=== PATIENT | female | born 1995 | race Caucasian/White ===

== ENCOUNTER 2025-04-22 02:56 | Day surgery (SDC) | payer BC, SELFPAY ==
[2025-04-08 14:25] VITALS: BMI 38.8
--- NOTE | 2025-04-08 14:26 | PC.NURSE ---
[facility] has started construction of its new state of the art ER which will open Spring 2026. With this, we anticipate parking may be a challenge for some our surgical patients and families. Parking spaces are limited but are available for all Surgical, obstetrics, and ER patients sharing this lot. If you arrive and find you are having a hard time finding a parking space, please note that we understand the challenges, please drive around the hospital and park near Hospital Entrance 1. When you enter this entrance, you can ask a volunteer to direct or take you back to the surgical waiting area to check in. We appreciate everyone?s understanding of these expected challenges while we build for your future. Report to the Outpatient Waiting Room, entrance under the green pavilion located off [address], at time _1130_ on date _[id number]_. Planned Procedure Time: _130pm_.? Time changes happen often and if your time is changed the preop area will call you the afternoon before. - You and your visitor will be asked to self-screen and do not enter if you have any COVID symptoms. Please call surgeon if you need to reschedule. - A mask is optional within the hospital at this time. Patients may have clear liquids (water, carbonated beverages, clear teas, apple juice) until 3 hours prior to surgery with a maximum of 20 ounces. - No food from midnight until time of surgery and no smoking, or chewing tobacco (or any form of nicotine). No chewing gum, candy or mints. Take only the following medications with a SIP of water on the morning of surgery: ___Labetolol____ DO NOT STOP ANY OF YOUR OTHER PRESCRIPTION MEDICATIONS PRIOR TO SURGERY EXCEPT THE FOLLOWING Hold all vitamins and supplements for 3 days per anesthesiologist. Medications to discontinue per physician Date to take last dose Please no make-up, nail sami, hairspray, perfume, deodorant, or body powder the day of surgery.? No jewelry (including any body piercings) or valuables the day of surgery, leave them at home.? Please take a shower or bath the night before, or the morning of, surgery with an antibacterial soap.? Wear comfortable, loose fitting clothing.? - Jewelry must be removed prior to entering the operating room.? Rings and piercings that are not removed may be cut off. - The hospital will not accept responsibility for valuables.? - Please leave all valuables, including medications, at home the day of surgery. If you are going home after surgery, a licensed limo driver must drive you home.? - NO public transportation without another adult if you receive anesthesia. - We recommend that an adult stay with you for 24 hours following discharge. - We also recommend that you do not drive, make important decision, drink alcoholic beverages, or take any drugs that were not prescribed by your health care provider for at least 24 hours after your discharge time. Follow any additional instructions given to you from your surgeon. Telephone instructions given to __Fatoumata___and asked if any additional questions and then verbalized understanding. Patient advised to call surgeon office or pre surgery nurse liaison [phone] if any additional questions.
[2025-04-22] VITALS (8 sets, daily range): BP systolic 111–132; BP diastolic 51–79; PULSE 60–73; RESP 12–20; TEMP 36.1–36.4; O2SAT 95–100
--- OUTSIDE RECORDS SUMMARY | 2025-04-22 02:59 | XMS_ITS | Encounter Summary ---
Author Organization [facility] Address [address] [place] [id number] Care Team Providers Care Principal Bioinformatics Specialist Name Role Phone Tray Bright MD Primary Care Provider [phone] Encounter Details Date Type Department Care Team (Late st Contact Info) Description 12/18/2021 [facility] [employer] Message Enc [facility] [address] [place] [address] Jerry Perry MD [address] [place], [place] [id number] Update Social History Tobacco Use Types Packs/Day Years Used Date Smoking Tobacco: Never Smokeless Tobacco: Never Alcohol Use Standard Drinks/Week Comments Yes 1.7 (1 standard drink = 0.6 oz p ure alcohol) AUDIT-C Answer Date Recorded Frequency of Alcohol Consumption 2-4 times a fri02/03/2019 Average Number of Drinks 1 or 2 019 Frequency of Binge Drinking Not on file 01/18 PHQ-2 Answer Date Recorded PHQ-2 Score - If the patient scores above 3, please move on to questions 3-9 0 12/12/2021 Comments No Sex and Gender Information Value Date Recorded Sex Assigned at Not on file Legal Sex Female 7:54 AM CDT Gender Identity Not on file Sexual Orientation Not on file 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 No / Unsure 12/12/2021 1:44 PM CDT documented as of this encounter Progress Notes * Jerry Perry MD - 12/18/2021 11:37 AM CDT Abx likley not appropriate unless has otitis media. Continuing conservative measuers is likely the appropriate route. documented in this encounter Plan of Treatment Not on file documented as of this encounter Visit Diagnoses Not on filedocumented in this encounter Care Teams Principal Bioinformatics Specialist Relationship Specialty Start Date End Date Tray Bright MD [address] [place] [address] [place] [address] PCP - General FAMILY PRACTICE 11/04/18 documented as of this encounter
--- OUTSIDE RECORDS SUMMARY | 2025-04-22 02:59 | XMS_ITS | Encounter Summary ---
Author Organization [facility] Address [address] [place] [address] Care Team Providers Care Crystallography Teacher Name Role Phone Loreto Watters MD Primary Care Provider [phone] Encounter Details Date Type Department Care Team (Late st Contact Info) Description 10/01/2024 Results Follow-Up [facility] OBGYN [address] [facility] [address] [facility] [place] [address] Estela Stafford, GENERATION ENGINEER [address] [facility] [address], [address] [place], [place] [id number] Social History Tobacco Use Types Packs/Day Years Used Date Smoking Tobacco: Never Passive Smoke Exposure: Never Smokeless Tobacco: Never Alcohol Use Standard Drinks/Week Comments Not Currently 0 (1 standard drink = 0.6 oz pur e alcohol) [facility] Utilities Answer Date Recorded In the past 12 months has [employer], [employer], oil, or water [employer] threatened to shut off services in your home? No 09/24/2024 AUDIT-C Answer Date Recorded Q1: How often do you have a drink containing alcohol? Never 09/24/2024 Q2: How many drinks containi ng alcohol do you have on a typical day when you are drinking? Patient does not drink Q3: How often do you have si x or more drinks on one occasion? Never 09/24/2024 Overall Financial Resource Strain (CARDIA) Answe r Date Recorded How hard is it for you to pa y for the very basics like food, housing, medical care, and heating? Not hard at all 09/24/2024 [facility] Occupat ional Health - Occupational Stress Questionnaire Answer Date Recorded Do you feel stress - tense, restless, nervous, or anxious, or unable to sleep at night because your mind is troubled all the time - these days? Not at all 09/24/2024 Exercise Vital Sign Answer Date Recorde d On average, how many days pe r week do you engage in moderate to strenuous exercise (like a brisk walk)? 3 days 09/24/2024 On average, how many minutes do you engage in exercise at this level? 50 min 09/24/2024 Hunger Vital Sign Answer Date Recorded Within the past 12 months, y ou worried that your food would run out before you got the money to buy more. Never true 09/25/19 25 Within the past 12 months, t he food you bought just didn't last and you didn't have money to get more. Never true 09/24/2024 PRAPARE - Transportation Answer Date Re corded In the past 12 months, has l ack of transportation kept you from medical appointments or from getting medications? No 01/2025 In the past 12 months, has l ack of transportation kept you from meetings, work, or from getting things needed for daily living? No 09/24/2024 [place] Depression Scale Answer Date Recorded Retired [place] Depression Score 0 01/07/2023 Retired EPD Scale: Thought of Harming Self Unrec ognized value 01/07/2023 Abuse Screen Answer Date Recorded Feels Unsafe at Home or Work/School no 09/24/2024 Feels Threatened by Someone no 01/2025 Does Anyone Try to Keep You From Having Contact with Others or Doing Things Outside Your Home? no 09/24/2024 Physical Signs of Abuse Present no 09/24/2024 Housing Stability Answer Date Recorded Current Living Arrangements home 01/2025 Potentially Unsafe Housing Conditions none 09/24/2024 Family and Community Support Answer Quentin e Recorded If for any reason you need h elp with day-to-day activities such as bathing, preparing meals, shopping, managing finances, etc., do you get the help you need? I don't need any help 09/24/2024 How often do you feel lonely or isolated from those around you? Never 09/24/2024 Employment Answer Date Recorded Do you want help finding or keeping work or a job? I do not need or want help 09/24/2024 Disabilities Answer Date Recorded Difficulty Concentrating, Remembering or Making Decisions no 09/24/2024 Difficulty Managing Errands Independently no 09/24/2024 Education Answer Date Recorded Do you want help with school or training? For example, starting or completing job training or getting a high school diploma, GED or equivalent No 09/24/2024 Preferred Language Greek 09/24/2024 PHQ-2 Answer Date Recorded Patient Health Questionnaire-2 Score 0 09/24/2024 Comments Yes Sex and Gender Information Value Date Recorded Sex Assigned at Female 09/16/2024 3:57 PM EST Legal Sex Female 9:12 AM EDT Gender Identity Not on file Sexual Orientation Not on file documented as of this encounter Plan of Treatment Upcoming Encounters Date Type Department Care Team (Late st Contact Info) Description 12/02/2025 10:00 AM CDT Office Visit [facility] OBGYN [address] [place] [address] Loreto Watters MD [address] [facility] [address] [place] [address] documented as of this encounter Visit Diagnoses Not on filedocumented in this encounter Care Teams Crystallography Teacher Relationship Specialty Start Date End Date Loreto Watters MD [address] [facility] [address] [place] [address] PCP - General Obstetrics and Gynecology 09/24/24 documented as of this encounter
--- OUTSIDE RECORDS SUMMARY | 2025-04-22 02:59 | XMS_ITS | Clinical Summary ---
Author Organization [facility] Address [address] [place], [place] [id number] Care Team Providers Care Table Games Manager Name Role Phone Loreto Watters MD Primary Care Provider [phone] Allergies Active Allergy Reactions Criticality Noted Date Comments Azithromycin 08/28/2022 Medications Vit-Fe Fumarate-FA ( PLUS) 27-1 MG Take by mouth daily. Active ASPIRIN LOW DOSE 81 MG EC tablet 08/19/2022 Act karina famotidine (PEPCID) 20 MG tablet Take 20 mg by mouth 2 (two) times daily. 07/01/2024 Active Active Problems Problem Noted Date Diagnosed Date History of gestational hypertension 06/07/2024 Previous delivery affecting , antepartum 06/03/2024 Obesity affecting , antepartum 08/28/19 23 Family History Medical History Relation Comments Depression Father Hypertension Father No Known Problems Mother Relation Status Comments Father Mother Social History Tobacco Use Types Packs/Day Years Used Date Smoking Tobacco: Never Smokeless Tobacco: Never Tobacco Cessation:Counseling Given: Not Answered Alcohol Use Standard Drinks/Week Comments Not Currently 0 (1 standard drink = 0.6 oz pur e alcohol) Comments No Sex and Gender Information Value Date Recorded Sex Assigned at Not on file Legal Sex Female 2:53 PM EDT Gender Identity Not on file Sexual Orientation Not on file Last Filed Vital Signs Vital Sign Reading Time Taken Comments Blood Pressure 132/82 07/19/2024 2:33 PM EST Pulse - - Temperature - - Respiratory Rate - - Oxygen Saturation - - Inhaled Oxygen Concentration - - Weight 135.2 kg (298 lb) 07/19/2024 2:33 PM EST Height 172.7 cm (5' 8) 07/25/2022 9:52 AM EST Body Mass Index 45.31 07/25/2022 9:52 AM EST Plan of Treatment Health Maintenance Due Date Last Done Comments Polio (IPV) (2 of 3 - 4-dose series) 01/04/2002 12/07/2001 Cervical Cancer Screening 2018 HPV Vaccine (1 - 3-dose SCDM series) 02/03/2024 Annual SDOH Screening 07/21/2024 Influenza Vaccine (#1) 2025 06/20/2022, 2008 Tdap/Td Vaccine >11 yo (3 - Td or Tdap) 10/28/2032 10/28/2022, 03/02/2008 Hepatitis B (HepB) Vaccine Completed 08/05, 1997, 1997 Haemophilus Influenzae Type B (Hib) Vaccine Completed 05/23/1998, 1997, 1997, Additional history exists Meningococcal ACWY Aged Out 03/02/2008 No longer eligible based on patient's age to complete this topic Hepatitis A (HepA) Vaccine Completed 02/13/2011, Pneumococcal Vaccines 6-49 yo Risk Aged Out No longer eligible based on patient's age to complete this topic Rotavirus (RV) Vaccine Aged Out No lo nger eligible based on patient's age to complete this topic Insurance ANTHEM Care Teams Table Games Manager Relationship Specialty Start Date End Date Loreto aWtters MD [address] [address], [address] [address] PCP - General Obstetrics and Gynecology 06/07/24
--- OUTSIDE RECORDS SUMMARY | 2025-04-22 02:59 | XMS_ITS | Encounter Summary ---
Author Organization [facility] Address [address] [place] [address] Care Team Providers Care Fruit Grader Operator Name Role Phone Loreto Watters MD Primary Care Provider [phone]- [phone] Reason for Visit * Reason Comments Med Refill Encounter Details Date Type Department Care Team (Late st Contact Info) Description 04/21/2025 Refill [facility] OBGYN [address] [facility] [address] [place] [address] Loreto Watters MD [address] [facility] [address] [place], [place] [id number] Depression during , antepartum Social History Tobacco Use Types Packs/Day Years Used Date Smoking Tobacco: Never Passive Smoke Exposure: Never Smokeless Tobacco: Never Alcohol Use Standard Drinks/Week Comments Not Currently 0 (1 standard drink = 0.6 oz pur e alcohol) [facility] Utilities Answer Date Recorded In the past 12 months has [employer], gas, oil, or water [employer] threatened to shut off services in your home? No 10/19/2024 AUDIT-C Answer Date Recorded Q1: How often do you have a drink containing alcohol? Never 10/19/2024 Q2: How many drinks containi ng alcohol do you have on a typical day when you are drinking? Patient does not drink Q3: How often do you have si x or more drinks on one occasion? Never 10/19/2024 Overall Financial Resource Strain (CARDIA) Answe r Date Recorded How hard is it for you to pa y for the very basics like food, housing, medical care, and heating? Not hard at all 10/19/2024 [facility] - Occupational Stress Questionnaire Answer Date Recorded Do you feel stress - tense, restless, nervous, or anxious, or unable to sleep at night because your mind is troubled all the time - these days? Not at all 10/19/2024 Exercise Vital Sign Answer Date Recorde d On average, how many days pe r week do you engage in moderate to strenuous exercise (like a brisk walk)? 3 days 10/19/2024 On average, how many minutes do you engage in exercise at this level? 50 min 10/19/2024 Hunger Vital Sign Answer Date Recorded Within the past 12 months, y ou worried that your food would run out before you got the money to buy more. Never true 10/20/19 25 Within the past 12 months, t he food you bought just didn't last and you didn't have money to get more. Never true 10/19/2024 PRAPARE - Transportation Answer Date Re corded In the past 12 months, has l ack of transportation kept you from medical appointments or from getting medications? No 07/2024 In the past 12 months, has l ack of transportation kept you from meetings, work, or from getting things needed for daily living? No 10/19/2024 [place] Depression Scale Answer Date Recorded [place] Depression Scale Total 0 11/30/2024 The thought of harming myself has occurred to me . Never 11/30/2024 Abuse Screen Answer Date Recorded Feels Unsafe at Home or Work/School no 10/21/2024 Feels Threatened by Someone no 09/2024 Does Anyone Try to Keep You From Having Contact with Others or Doing Things Outside Your Home? no 10/21/2024 Physical Signs of Abuse Present no 10/21/2024 Housing Stability Answer Date Recorded Current Living Arrangements home 07/2024 Potentially Unsafe Housing Conditions none 10/19/2024 Family and Community Support Answer Quentin e Recorded If for any reason you need h elp with day-to-day activities such as bathing, preparing meals, shopping, managing finances, etc., do you get the help you need? I don't need any help 10/19/2024 How often do you feel lonely or isolated from those around you? Never 10/19/2024 Employment Answer Date Recorded Do you want help finding or keeping work or a job? I do not need or want help 10/19/2024 Disabilities Answer Date Recorded Difficulty Concentrating, Remembering or Making Decisions no 10/19/2024 Difficulty Managing Errands Independently no 10/19/2024 Education Answer Date Recorded Do you want help with school or training? For example, starting or completing job training or getting a high school diploma, GED or equivalent No 10/19/2024 Preferred Language Colombian 10/19/2024 PHQ-2 Answer Date Recorded Patient Health Questionnaire-2 Score 0 10/19/2024 Comments No Sex and Gender Information Value Date Recorded Sex Assigned at Female 09/16/2024 3:57 PM EST Legal Sex Female 9:12 AM EDT Gender Identity Not on file Sexual Orientation Not on file documented as of this encounter Plan of Treatment Upcoming Encounters Date Type Department Care Team (Late st Contact Info) Description 12/02/2025 10:00 AM CDT Office Visit [facility] OBGYN [address] [facility] [address] [place] [address] Loreto Watters MD [address] [facility] [address] [place] [address] documented as of this encounter Visit Diagnoses Diagnosis Depression during , antepartum documented in this encounter Care Teams Fruit Grader Operator Relationship Specialty Start Date End Date Loreto Watters MD [address] [facility] [address] [place], [place] [id number] PCP - General Obstetrics and Gynecology 09/24/24 documented as of this encounter
--- OUTSIDE RECORDS SUMMARY | 2025-04-22 02:59 | XMS_ITS | Encounter Summary ---
Author Organization [facility] Address [address] [place] [address] Care Team Providers Care Fresh Food Manager Name Role Phone Loreto Watters MD Primary Care Provider [phone]- [phone] Encounter Details Date Type Department Care Team (Late st Contact Info) Description 10/18/2024 Results Follow-Up [facility] OBGYN [address] [facility] [address] [place] [address] Estela Stafford, SAMPLE STITCHER [address] [facility] [address], [address] [place], [place] [id number] Social History Tobacco Use Types Packs/Day Years Used Date Smoking Tobacco: Never Passive Smoke Exposure: Never Smokeless Tobacco: Never Alcohol Use Standard Drinks/Week Comments Not Currently 0 (1 standard drink = 0.6 oz pur e alcohol) [facility] Utilities Answer Date Recorded In the past 12 months has [employer], [employer], oil, or water [employer] threatened to shut off services in your [...] and heating? Not hard at all 10/19/2024 [facility] of Occupat ional Health - Occupational Stress [...] things needed for daily living? No 10/19/2024 [place] Depression Scale Answer Date Recorded [place] Depression Scale Total 0 10/22/2024 Retired EPD Scale: Thought of Harming Self Unrec ognized value 10/22/2024 Abuse Screen Answer Date Recorded Feels Unsafe [...] GED or equivalent No 10/19/2024 Preferred Language Equatorial Guinean 10/19/2024 PHQ-2 Answer Date Recorded Patient Health Questionnaire-2 Score 0 10/19/2024 Comments No Sex and Gender Information Value Date Recorded Sex Assigned at Female 09/16/2024 3:57 PM EST Legal Sex Female 9:12 AM EDT Gender Identity Not on file Sexual Orientation Not on file documented as of this encounter Functional Status * Audit-C Score Answer Date of Assessment Author 0 10/19/2024 6:17 PM EDT Sa jessie Beck RN * Question Answer Date of Assessment Author Q1: How often do you have a drink containing alcohol? Never 10/19/2024 6:17 PM ALEXT Haydee Beck RN Q2: How many drinks containing alcohol do you have on a typical day when you are drinking? Patient does not drink 10/19/2024 6:17 PM Haydee Israel RN Q3: How often do you have six or more drinks on one occasion? Never 10/19/2024 6:17 PM ALEXT Haydee Beck RN * Over the past 2 weeks, how often have you been bothered by any of the following problems? Question Answer Date of Assessment Author Patient Health Questionnaire -2 Score 0 10/19/2024 6:17 PM Haydee Israel RN * Calculated C-SSRS Risk Score (Lifetime/Recent) Answer Date of Assessment Author No Risk Indicated 10/21/2024 7:13 PM ALEXT Brittani Ellis RN * [place] Suicide Severity Rating Scale (Screener/Recent Self-Report) Question Answer Date of Assessment Author 1. Wish to be (Past 1 Month) No 10/21/2024 7:13 PM EDT Brittani Ellis RN 2. Non-Specific Active Suici arleen Thoughts (Past 1 Month) No 10/21/2024 7:13 PM EDT Georgette Ellis RN 6. Suicidal Behavior (Lifetime) No 7:13 PM EDT Brittani Ellis RN * Question Answer Date of Assessment Author Little interest or pleasure in doing things Not at all 10/19/2024 6:17 PM EDT Haydee Beck RN Feeling down, depressed, or hopeless Not at all 10/19/2024 6:17 PM EDT Haydee Beck RN documented as of this encounter Plan of Treatment Upcoming Encounters Date Type Department Care Team (Late st Contact Info) Description 12/02/2025 10:00 AM CDT Office Visit [facility] OBGYN [address] [facility] [address] [place] [phone] Loreto Watters MD [address] [facility] [address] [place], [place] [phone] documented as of this encounter Visit Diagnoses Not on filedocumented in this encounter Care Teams Fresh Food Manager Relationship Specialty Start Date End Date Loreto Watters MD [address] [facility] [address] [place] [address] PCP - General Obstetrics and Gynecology 09/24/24 documented as of this encounter
--- OUTSIDE RECORDS SUMMARY | 2025-04-22 03:00 | XMS_ITS | Clinical Summary ---
Author Organization [facility] Address [address] [place] [address] Care Team Providers Care Sample Display Preparer Name Role Phone Loreto Watters MD Primary Care Provider [phone]- [phone] Allergies Active Allergy Reactions Criticality Noted Date Comments Azithromycin Rash Low 11/04/2018 Medications vitamin (, CLASSIC, vitamin) tablet Take 1 tablet by mouth Daily. Active norethindrone (MICRONOR) 0.35 MG tablet Take 1 tablet by mouth Daily. 28 tablet 12 5 026 Active sertraline (ZOLOFT) 50 MG tabletIndication s:Depression during , antepartum TAKE ONE TABLET DAILY 30 tablet 2 5 Active labetalol (NORMODYNE) 100 MG tabletIndication s:History of gestational hypertension TAKE 1 TABLET BY MOUTH 2 (TWO) TIMES A DAY. 60 tablet 5 Active labetalol (NORMODYNE) 100 MG tabletIndication s:History of gestational hypertension TAKE 1 TABLET BY MOUTH 2 (TWO) TIMES A DAY. 60 tablet 5 025 Discontinued Active Problems Problem Noted Date Diagnosed Date state 10/20/2024 Status post repeat low transverse secti on 10/20/2024 Lactating mother 10/20/2024 Pain following delivery 10/20/2024 Maternal anemia in , antepartum 025 Maternal care for excessive growth in thir d trimester 08/26/2024 Gestational hypertension, third trimester 2024 03/30/2024 Multigravida 03/30/2024 History of gestational hypertension 03/30/2024 Maternal care due to low tra nsverse uterine scar from previous delivery 03/30/2024 Pilonidal cyst 10/13/2023 Depression 09/17/2023 Resolved Problems Problem Noted Date Diagnosed Date Resolved Date 35 weeks gestation of 09/24/2024 09/30/2024 Conjunctivitis of left eye 07/02/2023 0 09/08/2024 Pharyngitis 07/02/2023 09/08/2024 Upper respiratory tract infection 07/02/2023 09/08/2024 Productive cough 07/02/2023 09/08/2024 Abnormal liver function 12/04/202204/20 Shortness of breath 12/04/2022 05/05/20 23 Volume overload 12/04/2022 05/05/2023 S/P section 11/30/2022 023 Gestational hypertension 11/27/2022 Failed medical induction of labor 11/14/2022 05/05/2023 Overview (11/30/2022): Added automatically from request for surgery [id number] 09/02/2022 05/05/2023 Obesity affecting , antepartum 08/28/2022 05/05/2023 Primigravida 04/16/2022 05/05/2023 Encounters Date Type Department Care Team Description 04/21/2025 [facility] [address] [place] [address] Loreto Watters MD Depression during , antepartum 03/31/2025 [facility] [address] [place] [phone] Grace Luu APRN History of gestational hypertension 02/25/2025 [facility] [address] [place] [phone] Grace Luu, KRYSTLE History of gestational hypertension from Last 3 Months Immunizations Immunization Administration Dates Next Due Fluzone (or Fluarix & Flulav al for VFC) >6mos 06/20/2022 H1N1 All Forms 05/16/2009 Hep A, Unspecified 02/13/2011,03/14/2010 Hep B, Adolescent or Pediatric 1997,1996,1997 Hib (HbOC) 05/23/1998, 8,1997,04/04 IPV 12/07/2001 Meningococcal MCV4P (Menactra) 03/02/2008 Tdap 08/11/2024,10/28/2022,03/02/2008 Varicella 05/28/2010,02/11/2002 Family History Medical History Relation Name Comments No Known Problems Brother No Known Problems Maternal Grandfather No Known Problems Maternal Grandmother Depression Mother Hypertension Mother No Known Problems Paternal Grandfather No Known Problems Paternal Grandmother Breast cancer Neg Hx Colon cancer Neg Hx Melanoma Neg Hx Ovarian cancer Neg Hx Uterine cancer Neg Hx Relation Name Status Comments Brother Father Maternal Grandfather Maternal Grandmother Mother Paternal Grandfather Paternal Grandmother Social History Tobacco Use Types Packs/Day Years Used Date Smoking Tobacco: Never Passive Smoke Exposure: Never Smokeless Tobacco: Never Tobacco Cessation:Counseling Given: Not Answered Alcohol Use Standard Drinks/Week Comments Not Currently 0 (1 standard drink = 0.6 oz pur e alcohol) [facility] Utilities Answer Date Recorded In the past 12 months has e electric, gas, oil, or water [employer] threatened to shut off services in your [...] and heating? Not hard at all 10/19/2024 [facility] Occupat ional Health - Occupational Stress [...] things needed for daily living? No 10/19/2024 [place] Depression Scale Answer Date Recorded [place] Depression Scale Total 0 11/30/2024 The thought [...] GED or equivalent No 10/19/2024 Preferred Language Swazi 10/19/2024 PHQ-2 Answer Date Recorded Patient Health Questionnaire-2 Score 0 10/19/2024 Comments No Sex and Gender Information Value Date Recorded Sex Assigned at Female 09/16/2024 3:57 PM EST Legal Sex Female 9:12 AM EDT Gender Identity Not on file Sexual Orientation Not on file Last Filed Vital Signs Vital Sign Reading Time Taken Comments Blood Pressure 132/84 12/10/2024 3:34 PM CDT Pulse 87 12/10/2024 3:34 PM CDT Temperature 36.9 C (98.4 F) 12/10/2024 3:34 PM CDT Respiratory Rate 18 10/21/2024 11:11 PM CDT Oxygen Saturation 99% 12/10/2024 3:34 PM CDT Inhaled Oxygen Concentration - - Weight 122 kg (270 lb) 12/10/2024 3:34 PM CDT Height 172.7 cm (5' 7.99) 11/30/2024 8:56 AM CD T Body Mass Index 41.06 11/30/2024 8:56 AM CDT Plan of Treatment Upcoming Encounters Date Type Department Care Team (Late st Contact Info) Description 12/02/2025 10:00 AM CDT Office Visit [facility] OBGYN [address] [facility] [address] [place] [address] Loreto Watters MD [address] [facility] [address] [place], [place] [id number] Health Maintenance Due Date Last Done Comments ANNUAL PHYSICAL 04/16/2022 Annual Gynecologic Pelvic an d Breast Exam 05/06/2024 05/05/2023, 11/13/2021 INFLUENZA VACCINE 02/18/2025 06/20/2022 PAP SMEAR 12/01/2027 11/30/2024, 11/13/2021 TDAP/TD VACCINES (4 - Td or Tdap) 08/11/2034 08/11/2024, 10/28/2022, 03/02/2008 HEPATITIS C SCREENING Completed 03/08/2024 , 04/16/2022 Pneumococcal Vaccine 0-49 Aged Out No longer eligible based on patient's age to complete this topic Procedures Procedure Name Priority Date/Time Associated Diagnosis Comments LIQUID-BASED PAP SMEAR, SCREENING Routine 11/30/2024 11:14 AM CDT Cervical cancer screening HCV ANTIBODY RFX TO QNT PCR Routine 03/08/2024 9:41 AM CDT 6 weeks gestation of SCANNED - PAP SMEAR 11/13/2021 from Last 3 Months or Most Recently Relevant to Health Maintenance Results * Liquid-based Pap Smear, Screening (11/30/2024 11:14 AM CDT) Note to Patients This report may contain a detailed description of human tissue sent by a health care provider to the laboratory for pathologic evaluation. The content of this report is essential for diagnosis and may provide important critical findings. This information may be unfamiliar to patients to review without a medical professional present. It is advised that the patient review this report in the presence of a health care provider who can answer questions and explain the results. 12/01/2024 2:21 PM CDT [facility] Case Report Gynecologic Cytology Report Case: [id number] Authorizing Provider: Loreto Watters MD Collected: 11/30/2024 11:14 AM Ordering Location: [facility] Received: 12/01/2024 05:48 AM [facility] First Screen: Chelita Calixto Specimen: Liquid-Based Pap, Screening, Cervix, Endocervix 12/01/2024 2:21 PM CDT [facility] Interpretation Negative for intraepithelial lesion or malignancy 12/01/2024 2:21 PM CDT [facility] at 1421 CDT General Categorization Within normal limits 12/01/2024 2:21 PM CDT [facility] Other Findings Atrophy 12/01/2024 2:21 PM CDT [facility] Specimen Adequacy Satisfactory for evaluation, endocervical/shrestha sformation zone component present 12/01/2024 2:21 PM CDT [facility] Additional Information Disclaimer: Cervical cytology is a screening test primarily for squamous cancer and its precursors and has associated false-negative and false-positive results. Technologies such as liquid-based preparations may decrease but will not eliminate all false-negative results. Follow-up of unexplained clinical signs and symptoms is recommended to minimize false-negative results. (The [place] System for Reporting Cervical Cytology: [place], 2015). 12/01/2024 2:21 PM CDT [facility] ThinPrep Vial Cervix uteri structure / Unknown Collection / Unknown 11/30/2024 11:14 AM CDT 12/01/2024 5:48 AM CDT Loreto Watters MD PATHOLOGY/CYTOLOGY ORDERAB LES Final Result [facility]
[address] [place] [address], * HCV Antibody Rfx To Qnt PCR (03/08/2024 9:41 AM CDT) Hepatitis C Ab Non Reactive Non Reactive [facility] Blood 03/08/2024 9:41 AM CDT 03/07/2024 11:00 PM CDT Narrative [facility] ([facility]) - 03/13/2024 12:06 PM CDT Performed at: 04 - [address] [id number] Genetic Counselor: Amadeo Gan PhD, Phone: [phone] Patient Fasting: N Loreto Watters MD LAB BLOOD ORDERABLES Final Result [facility]) [address] [place] [address], [place] [phone] [facility] [address] [place] [address], [place] [phone] * SCANNED - PAP SMEAR (11/13/2021) Estela Stafford APRN CHART REVIEW TABS Final Re sult from Last 3 Months or Most Recently Relevant to Health Maintenance Insurance Advance Directives * CPR (Attempt to Resuscitate) (Latest Code Status on File) Date Activated Date Inactivated Comments 10/18/2024 6:24 PM 10/20/2024 6:48 PM Question Answer Comments Code Status (Patient has no pulse and is not breathing): CPR (Attempt to Resuscitate) Medical Interventions (Patie nt has pulse or is breathing): Full * CPR (Attempt to Resuscitate) Date Activated Date Inactivated Comments 10/18/2024 11:13 AM 10/18/2024 6:24 PM Question Answer Comments Code Status (Patient has no pulse and is not breathing): CPR (Attempt to Resuscitate) Medical Interventions (Patie nt has pulse or is breathing): Full Support * CPR (Attempt to Resuscitate) Date Activated Date Inactivated Comments 12/04/2022 11:27 AM 12/05/2022 2:07 PM Question Answer Comments Code Status (Patient has no pulse and is not breathing): CPR (Attempt to Resuscitate) Medical Interventions (Patie nt has pulse or is breathing): Full * CPR (Attempt to Resuscitate) Date Activated Date Inactivated Comments 11/30/2022 4:46 PM 12/02/2022 3:41 PM Question Answer Comments Code Status (Patient has no pulse and is not breathing): CPR (Attempt to Resuscitate) Medical Interventions (Patie nt has pulse or is breathing): Full * CPR (Attempt to Resuscitate) Date Activated Date Inactivated Comments 11/30/2022 9:07 AM 11/30/2022 4:46 PM Question Answer Comments Code Status (Patient has no pulse and is not breathing): CPR (Attempt to Resuscitate) Medical Interventions (Patie nt has pulse or is breathing): Full Support Care Teams Sample Display Preparer Relationship Specialty Start Date End Date Loreto Watters MD [address] [place] [address] PCP - General Obstetrics and Gynecology 09/24/24
--- OUTSIDE RECORDS SUMMARY | 2025-04-22 03:00 | XMS_ITS | Encounter Summary ---
Author Organization [facility] Address [address] [place] [address] Care Team Providers Care Kitchen Worker Name Role Phone Loreto Watters MD Primary Care Provider [phone]- [phone] Encounter Details Date Type Department Care Team (Late st Contact Info) Description 10/27/2024 Results Follow-Up [facility] O[facility]YN [address] [facility] [address] [place] [address] Loreto Watters MD [address] [facility] [address] [place], [place] [id number] Social History Tobacco Use Types Packs/Day Years Used Date Smoking Tobacco: Never Passive Smoke Exposure: Never Smokeless Tobacco: Never Alcohol Use Standard Drinks/Week Comments Not Currently 0 (1 standard drink = 0.6 oz pur e alcohol) [facility] Utilities Answer Date Recorded In the past 12 months has [employer] oil, or water [employer] threatened to shut off services in your [...] and heating? Not hard at all 10/19/2024 [facility] Occupat ional Health - Occupational Stress [...] things needed for daily living? No 10/19/2024 [place] Depression Scale Answer Date Recorded [place] Depression Scale Total 0 10/29/2024 The thought of harming myself has occurred to me . Never 10/29/2024 Abuse Screen Answer Date Recorded Feels Unsafe [...] GED or equivalent No 10/19/2024 Preferred Language Ghanaian 10/19/2024 PHQ-2 Answer Date Recorded Patient Health Questionnaire-2 Score 0 10/19/2024 Comments No Sex and Gender Information Value Date Recorded Sex Assigned at Female 09/16/2024 3:57 PM EST Legal Sex Female 9:12 AM EDT Gender Identity Not on file Sexual Orientation Not on file documented as of this encounter Progress Notes * Loreto Watters MD - 10/27/2024 10:16 AM CDT Normal labs. K normalized. No further replacement needed. documented in this encounter Plan of Treatment Upcoming Encounters Date Type Department Care Team (Late st Contact Info) Description 12/02/2025 10:00 AM CDT Office Visit [facility] [address] [facility] [address] [place] [address] Loreto Watters MD [address] [facility] [address] [place] [address] documented as of this encounter Visit Diagnoses Not on filedocumented in this encounter Care Teams Kitchen Worker Relationship Specialty Start Date End Date Loreto Watters MD [address] [facility] [address] [place] [address] PCP - General Obstetrics and Gynecology 09/24/24 documented as of this encounter
--- OUTSIDE RECORDS SUMMARY | 2025-04-22 03:00 | XMS_ITS | Clinical Summary ---
Author Organization [facility] Address [address] [place] [address] Care Team Providers Care Paving Inspector Name Role Phone Tray Bright MD Primary Care Provider Allergies Active Allergy Reactions Criticality Noted Date Comments Azithromycin Rash Low 11/04/2018 Medications dextromethorphan -guaiFENesin ER 30-600 MG TABLET SR 12 HR 12 hr tabletIndication s:Viral URI with cough Take 1 tablet by mouth every 12 (twelve) hours as needed. 28 tablet 12/12/2021 Active Active Problems Problem Noted Date Diagnosed Date Pilonidal cyst 01/17/2017 Resolved Problems Problem Noted Date Diagnosed Date Resolved Date Encounter for preventive health examination 01/15/2017 03/31/2020 Immunizations Immunization Administration Dates Next Due H1N1 2008 Influenza Vaccine 05/16/2009 Hepatitis A (Generic) 02/13/2011,03/14/2010 Hepatitis B Pediatric 1997,1997,01/19 Hib 05/23/1998,1997,1997 ,1997 Meningococcal 03/02/2008 Polio IPV (Ipol) 12/07/2001 Tdap (Boostrix) 03/02/2008 Varicella Vaccine 05/28/2010,02/11/2002 Social History Tobacco Use Types Packs/Day Years Used Date Smoking Tobacco: Never Smokeless Tobacco: Never Tobacco Cessation:Counseling Given: No Alcohol Use Standard Drinks/Week Comments Yes 1.7 [...] 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 Not on file Not on file Last Filed Vital Signs Vital Sign Reading Time Taken Comments Blood Pressure 118/78 12/12/2021 1:56 PM CDT Pulse 72 12/12/2021 1:56 PM CDT Temperature 36.2 C (97.2 F) 12/12/2021 1:56 PM CDT Respiratory Rate 16 12/12/2021 1:56 PM CDT Oxygen Saturation 98% 12/12/2021 1:56 PM CDT Inhaled Oxygen Concentration - - Weight 106.4 kg (234 lb 8 oz) 12/12/2021 1:56 PM CDT Height 172.7 cm (5' 8) 12/12/2021 1:56 PM CDT Body Mass Index 35.66 12/12/2021 1:56 PM CDT Plan of Treatment Health Maintenance Due Date Last Done Comments Cervical Cancer Screening Pap Smear (Age 21 to 29) Every 3 Years 1997 Cervical Cancer Screening 1997 Annual Physical 02/03/2000 Hepatitis C 2015 DTaP, Tdap and Td Vaccines (7 - Td or Tdap) 03/02/2018 03/02/2008, 12/07/2001, 05/23/1998, Additional history exists COVID-19 Vaccine ( season) 2025 Hepatitis B Vaccines Completed 1997, 1997, 1997 Meningococcal Vaccine Aged Out 03/02/2008 No mari danny eligible based on patient's age to complete this topic HPV Vaccines Completed 02/13/2011, 02/2010, 03/14/2010 Meningococcal B Vaccine Aged Out No l onger eligible based on patient's age to complete this topic Pneumococcal Vaccine: Pediatrics (0 to 5 Years) and At-Risk Patients (6 to 49 Years) Aged Out No longer eligible based on patient's age to complete this topic RSV Immunizations Under 20 Months Aged Out No longer eligible based on patient's age to complete this topic Insurance Care Teams Paving Inspector Relationship Specialty Start Date End Date Tray Bright MD [address] [place] [address] [place] [address] PCP - General FAMILY PRACTICE 11/04/18
[2025-04-22] MEDS: ACETAMINOPHEN 500 MG TABLET 1000 MG PO (12:15)
[2025-04-22] MEDS: KETOROLAC 15 MG/ML VIAL (*BKC) IV PUSH (12:15)
[2025-04-22] MEDS: LACTATED RINGERS 1,000 ML 30 ML IV CONT (12:15)
[2025-04-22] MEDS: SCOPOLAMINE 1 MG PATCH 1 PATCH TRANSDERM (12:28)
--- NOTE | 2025-04-22 12:53 | WPDANESEPPF ---
Anes - Initial Pre Proc Eval Procedure: Operation Date: 04/22/25 13:30 Proposed Procedures p Rectal Examination Under Anesthesia, Lateral Internal Sphincterotomy - Dane Garcia DO Date/Time: 04/22/25 12:53 Surgeon: Dane Garcia DO Pre Op Diagnosis: Anal Fissure Rectal Bleeding Patient Data Age: 30 Gender: F Height: 1.73 m Weight: 115.9 kg Last Vital Signs Temp 36.4 C L 04/22/25 11:25 Pulse 72 04/22/25 11:25 Resp 16 04/22/25 11:25 BP 127/79 04/22/25 11:25 Pulse Ox 100 04/22/25 11:25 O2 Del Method Room Air 04/22/25 11:25 Allergies Allergy/AdvReac Type Severity Reaction Status Date / Time azithromycin Allergy Mild Rash Verified 04/08/25 14:47 Home Medications ?Medication ?Instructions ?Recorded ?Confirmed ?Type labetalol 100 mg tablet 100 mg PO BID 02/11/25 04/08/25 History sertraline 50 mg tablet (Zoloft) 50 mg PO DAILY 02/11/25 04/08/25 History norethindrone (contraceptive) 0.35 0.35 mg PO HS 04/08/25 04/08/25 History mg tablet vit no.95-ferrous 1 tablet PO HS 04/08/25 04/08/25 History fumarate 28 mg-folic acid 800 mcg tablet () Patient hx anesthesia problems: none Family hx anesthesia problems: none Results Review: All pre-operative results and documents have been reviewed as part of the pre-operative evaluation. [facility] Past Medical History Medical History (Updated 04/22/25 @ 12:53 by Med Nguyễn MD) Obesity Hypertension Surgical History Surgical History (Updated 04/22/25 @ 12:58 by Med Nguyễn MD) H/O adenoidectomy Hx of tonsillectomy Hx of section 2022,2024 Family History Family History Grandparent Hypertension Social History Social History Smoking status: Never smoker Alcohol intake: never Substance use: never Substance use type: does not use Do You Feel Safe in your Home?: Yes Lack of Transportation: No Lack of Food: Never True Current Housing: I Have Housing Concerned About Future Housing: No Difficulty Paying Gas/Electric Bills: No Difficulty Paying for Meds: No Currently Unemployed: No Education: Associate Degree Difficulty w/ Childcare or Family Care: Decline to Answer Anes - Eval Final PreProcedure Day of Procedure 04/22/25 12:53 Patient weight: obese Heart: regular rate and rhythm Lungs: clear to auscultation Airway: Mallampati scale class II Neurological: alert and oriented Last oral intake: >/= 8 hours ASA classification: III Emergent: no Anesthetic plan: proceed Anesthesia type and monitoring: general ETT and standard monitoring Results Review: All pre-operative results and documents have been reviewed as part of the pre-operative evaluation. Informed Consent: The patient's anesthetic plan and its attendant risks and benefits were discussed with the patient/family/POA. Questions were solicited and answers provided to the satisfaction of the patient/family/POA.
--- NOTE | 2025-04-22 13:10 | WPDHPUPDATE1 ---
History and Physical Update Update Date/Time: 04/22/25 13:10 History and Physical has been reviewed, including an updated exam of the patient. There are NO changes in the patient's condition. Risks, benefits, and alternatives have been discussed and questions answered. Patient agrees to proceed with procedure.
--- NOTE | 2025-04-22 13:10 | PM.IMHP ---
H&P: HPI History of Present Illness Date/Time: 04/22/25 13:10 Chief Complaint: Rectal pain, bleeding Narrative: This is a 30-year-old woman who presents for rectal exam under anesthesia. She had been having pain and bleeding with bowel movements. She had tried nifedipine ointment with no significant improvement. She reports no significant changes since last seen in the office. Review of Systems Review of Systems: All systems reviewed & are unremarkable except as noted in HPI and below Constitutional: Constitutional: Denies chills, Denies fever(s), Denies headache(s) and Denies weight loss Eyes: Eyes: Denies change in vision ENT: Denies dizziness, Denies headache(s), Denies neck mass and Denies throat swelling Cardiovascular: Cardiovascular: Denies chest pain, Denies lightheadedness and Denies dyspnea Respiratory: Respiratory: Denies cough, Denies dyspnea and Denies wheezing Gastrointestinal: Gastrointestinal: Denies abdominal pain, Denies change in bowel habits, Denies nausea and Denies vomiting Genitourinary: Genitourinary: Denies hematuria and Denies dysuria Musculoskeletal: Musculoskeletal: Reports as per HPI Integumentary/Breasts: Skin/Breast: Reports as per HPI Neurologic: Denies dizziness and Denies headache(s) Allergic/Immunologic: Allergic/Immunologic: Denies throat swelling and Denies wheezing PMFSH Past Medical History Medical History (Updated 04/22/25 @ 12:53 by Med Nguyễn MD) Obesity Hypertension Surgical History Surgical History (Updated 04/22/25 @ 12:58 by Med Nguyễn MD) H/O adenoidectomy Hx of tonsillectomy Hx of section 2022,2024 Family History Family History Grandparent Hypertension Social History Social History Smoking status: Never smoker Alcohol intake: never Substance use: never Substance use type: does not use Do You Feel Safe in your Home?: Yes Lack of Transportation: No Lack of Food: Never True Current Housing: I Have Housing Concerned About Future Housing: No Difficulty Paying Gas/Electric Bills: No Difficulty Paying for Meds: No Currently Unemployed: No Education: Associate Degree Difficulty w/ Childcare or Family Care: Decline to Answer Meds Home Medications and Allergies Home Medications ?Medication ?Instructions ?Recorded ?Confirmed ?Type labetalol 100 mg tablet 100 mg PO BID 02/11/25 04/08/25 History sertraline 50 mg tablet (Zoloft) 50 mg PO DAILY 02/11/25 04/08/25 History norethindrone (contraceptive) 0.35 0.35 mg PO HS 04/08/25 04/08/25 History mg tablet vit no.95-ferrous 1 tablet PO HS 04/08/25 04/08/25 History fumarate 28 mg-folic acid 800 mcg tablet () Allergies Allergy/AdvReac Type Severity Reaction Status Date / Time azithromycin Allergy Mild Rash Verified 04/08/25 14:47 Vital Signs Vital Signs - 24 hr 04/22/25 11:25 Temperature 97.5 F L Pulse Rate 72 Respiratory Rate 16 Blood Pressure 127/79 Pulse Oximetry 100 Oxygen Delivery Room Air Exam Const: General: no acute distress and alert Orientation/consciousness: patient oriented x3 HENMT: Head: normocephalic and atraumatic Ears: hearing grossly normal bilaterally Face/Nose/Sinus: Normal nares present Mouth: Yes Normal oral and palatal mucosa present Eyes: Periorbital: periorbital findings normal Sclera: sclerae normal EOM: EOMs intact bilaterally Neck: Neck: normal visual inspection, no lymphadenopathy and trachea midline Chest: Chest palpation & inspection: normal inspection of the chest Resp: Effort & Inspection: normal respiratory effort Auscultation: clear to auscultation bilaterally Cardio: Jugular venous distension: no JVD Rate: regular rate Rhythm: regular rhythm Heart sounds: S1 normal heart sound present and S2 normal heart sound present Peripheral pulses: Peripheral pulses 2+ throughout GI: Inspection: normal to inspection GI Palp: Yes Soft to palpation, No Tenderness to palpation present (GI), No Guarding due to palpation present (GI) and No Rebound tenderness present Percussion: Yes normal to percussion Auscultation: normal bowel sounds : General: Yes no CVA tenderness Back/Spine/Pelvis: Back: no CVA tenderness Neuro: General: patient oriented x3, no focal motor deficits and CN's II-XI intact bilaterally Cognition (Neuro): normal cognition Speech: normal speech Motor exam (neuro): 5/5 motor strength present throughout Extrem: General: capillary refill normal and no clubbing, cyanosis or edema Assessment and Plan Assessment and plan (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 I have discussed the procedure, risks, benefits, and alternatives with the patient. All questions answered. No changes since last seen in office. (2) Rectal bleeding: Code(s): K62.5 - Hemorrhage of anus and rectum Status: Acute
[2025-04-22] MEDS: ceFAZolin 2 GM in SODIUM CHLORIDE 0.9% IV 50 ML 100 ML IVPB (13:23)
--- NOTE | 2025-04-22 14:15 | P.OP_ITS ---
Procedure Note - Detailed Date of Procedure 04/22/25 Pre-op Diagnosis Anal Fissure, Rectal Bleeding Post-op Diagnosis Same Procedure Performed 1. Rectal exam under anesthesia 2. Left lateral internal sphincterotomy Surgeon Dane Garcia, DO Anesthesia General and Local (0.5% bupivacaine with epinephrine) Indications This is a 30-year-old woman who presented with rectal pain and rectal bleeding. She was experiencing painful bowel movements and was found to have evidence of a likely anal fissure. Nifedipine ointment was ordered and patient had temporary relief from this, but then began experiencing recurrent pains. Discussions were made with the patient about treatment options and decision was made to proceed with rectal exam under anesthesia with lateral internal sphincterotomy Findings Rectal exam under anesthesia was performed. Patient had evidence of both an anterior midline and posterior midline anal fissure. Slight bleeding was noted even with digital rectal exam. No other deeper coexisting pathology was identified. Left lateral sphincterotomy was performed. No specimens were obtained for pathology. Description of Procedure Procedure as well as risks, benefits, and alternatives were discussed with the patient. Written consent was obtained and placed in chart prior to procedure. Patient was brought back to surgical suite. She was placed supine on hospital stretcher. Time-out was done to confirm patient and procedure. She was then intubated by the anesthesia department. She was then repositioned into prone brunilda-knife position on the operating table. Her perirectal area was prepped and draped in sterile fashion using Betadine prep. Digital rectal exam was initially performed. A medium Hill-Zhu anoscope was then inserted in the anal rectal canal was inspected. Anterior and posterior midline anal fissures were identified. 0.5% bupivacaine with epinephrine was then infiltrated locally around the perianal skin. The anoscope was then removed and a Fansler anoscope was then inserted. The intersphincteric groove was palpated in the left lateral location. A 1 cm incision was made over the internal sphincter muscle fibers using a 15 blade scalpel. Electrocautery was used for hemostasis. A curved hemostat was then used to isolate some of the internal sphincter muscle fibers and then the sphincterotomy was performed using electrocautery. This was e xtended into the anal canal to about the level of where the fissures ended. This allowed adequate relaxation of the sphincter muscle enough to aid with the fissures healing. The overlying mucosa and perianal skin was then reapproximated using 3-0 chromic simple interrupted sutures. The area was irrigated with sterile saline no other abnormalities were noted. The Fansler anoscope was then removed and the Hill-Zhu anoscope was then reinserted. The areas of the fissure were then cauterized to help with hemostasis and with granulation and healing. No other abnormalities were noted. A Xeroform gauze was then applied over the incision followed by fluff gauze, ABD pad, and mesh underwear. The patient was then awakened from anesthesia, extubated, and transferred to recovery. Estimated Blood Loss 5 Complications No immediate complications Condition Stable Disposition Same day [facility] Billing Surgery - Charge Forward: Surgery Billing
== END 2025-04-22 15:55 | disposition home or self-care (01) ==
PROVIDERS: Visit Provider Surgery
PROC: (CPT 46080; principal; 2025-04-22 13:30)
DX: K60.1 Chronic anal fissure (principal); I10 Essential (primary) hypertension; E66.9 Obesity, unspecified; Z68.38 Body mass index [BMI] 38.0-38.9, adult; Z98.890 Other specified postprocedural states
CPT/HCPCS: 46080; J0690; A9270; J0330; J1100; J1885; J2003; J2250; J2405; J2704; J3010; J7120